=== PATIENT | female | born 1940 | race Caucasian/White ===

== ENCOUNTER 2020-06-20 13:45 | Emergency (ER) | payer MEDICARE ==
[~2020-06-20] VITALS: Ht 165.1 cm; Wt 73.5 kg
[2020-06-20] MEDS ORDERED: ACYCLOVIR400 MG PO (14:18)
[2020-06-20] MEDS ORDERED: VENTOLIN HFA18 GM INH (14:19)
[2020-06-20] MEDS ORDERED: NORVASC2.5 MG PO (14:19)
[2020-06-20] MEDS ORDERED: BAYER CHEWABLE81 MG PO (14:20)
[2020-06-20] MEDS ORDERED: BIOTIN-D1 GM PO (14:20)
[2020-06-20] MEDS ORDERED: FISH OIL 1,0001 EAC2 PO (14:21)
[2020-06-20] MEDS ORDERED: CITALOPRAM HBR40 MG PO (14:21)
[2020-06-20] MEDS ORDERED: KLOR-CON-EF 2525 MEQ PO (14:22)
[2020-06-20] MEDS ORDERED: LISINOPRIL40 MG PO (14:22)
[2020-06-20] MEDS ORDERED: VITAMIN D350 MC3 PO (14:23)
[2020-06-20] MEDS ORDERED: OMEPRAZOLE20 MG PO (14:23)
[2020-06-20] MEDS ORDERED: PRAVASTATIN SOD40 MG PO (14:23)
[2020-06-20] MEDS ORDERED: CALCIUM500 MG PO (14:24)
--- NOTE | 2020-06-20 17:13 | EKG ---
[facility] [address] [place], [place] [address] Signed Normal sinus rhythm Left axis deviation Voltage criteria for left ventricular hypertrophy Nonspecific ST abnormality Abnormal ECG No previous ECGs available Confirmed by TURNER LINARES MD ([id number] on 06/20/2020 5:13:15 PM Electronically Signed By: TURNER LINARES MD 06/20/20 1713 PATIENT NAME: JAMARCUS CRANE Electrocardiogram DATE OF : 38 PHYSICIAN: TURNER LINARES MD REPORT #: [id number] REPORT IS CONFIDENTIAL AND NOT TO BE RELEASED WITHOUT AUTHORIZATION
== END 2020-06-20 17:49 | disposition home or self-care (01) ==
LOC: ED 13:45
DX: R00.2 Palpitations (principal); I10 Essential (primary) hypertension; E78.5 Hyperlipidemia, unspecified; K21.9 Gastro-esophageal reflux disease without esophagitis; Z79.899 Other long term (current) drug therapy; Z79.82 Long term (current) use of aspirin
CPT/HCPCS: 71045; 71260; 80053; 83735; 84484; 85025; 85379; 93005; 93010; 99285-25; Q9967

== ENCOUNTER 2023-03-19 20:19 | Emergency (ER) | payer OTHER, MEDICARE ==
[~2023-03-19] VITALS: Ht 165.1 cm; Wt 73.5 kg
[~2023-03-19 20:19] MED LIST: ACYCLOVIR400 MG PO; BAYER CHEWABLE81 MG PO; BIOTIN-D1 GM PO; CALCIUM500 MG PO; CITALOPRAM HBR40 MG PO; FISH OIL 1,0001 EAC2 PO; KLOR-CON-EF 2525 MEQ PO; LISINOPRIL40 MG PO; NORVASC2.5 MG PO; OMEPRAZOLE20 MG PO; PRAVASTATIN SOD40 MG PO; VENTOLIN HFA18 GM INH; VITAMIN D350 MC3 PO
[2023-03-19] MEDS ORDERED: LYRICA25 MG PO (21:52)
[2023-03-20] MEDS ORDERED: TRAMADOL HCL50 MG PO (00:53)
[2023-03-20 01:10] VITALS: BP 130/53
== END 2023-03-20 01:10 | disposition home or self-care (01) ==
LOC: ED 20:19
DX: S22.42XA Multiple fractures of ribs, left side, initial encounter for closed fracture (principal); S92.411A Displaced fracture of proximal phalanx of right great toe, initial encounter for closed fracture; W10.8XXA Fall (on) (from) other stairs and steps, initial encounter; I10 Essential (primary) hypertension; E78.5 Hyperlipidemia, unspecified; K21.9 Gastro-esophageal reflux disease without esophagitis; Z79.899 Other long term (current) drug therapy; Z79.82 Long term (current) use of aspirin
CPT/HCPCS: 71101; 71250; 73630; 99284-25; A9270